=== PATIENT | male | born 1980 | race Two or more races ===

== ENCOUNTER 2019-09-20 10:51 | Emergency (ER) | payer SELFPAY ==
[~2019-09-20] VITALS: Ht 165.1 cm; Wt 75.0 kg
[2019-09-20] MEDS ORDERED: IV NORMAL SALINE 1000ML BAG 1,000 ML IV SCH (11:03)
[2019-09-20] MEDS ORDERED: ACETAMINOPHEN 500 MG TABLET PO ONE (11:15)
--- NOTE | 2019-09-20 11:39 | RAD ---
EXAM: Chest, single view. HISTORY: Cough and fever. COMPARISON: None. FINDINGS: A frontal view of the chest is obtained. There is partially consolidated bilateral mid and lower lung infiltrate superimposed on diffuse interstitial infiltrate. No pleural effusion or pneumothorax is seen. The heart is normal in size. IMPRESSION: Multifocal infiltrate including areas of partial consolidation. Follow-up to confirm resolution. Electronically signed by: Ina Marx MD (09/20/2019 11:35 AM) [id number]
[2019-09-20 11:43] LABS: CALCIUM 8.9 mg/dL (8.5-10.1); GFR 84.1; POTASSIUM 3.5 mmol/L (3.5-5.1)
[2019-09-20 11:44] LABS: BASO % 0 % (0-3); EOS % 0 % (0-3); HEMATOCRIT 41.5 % (39.0-53.0); HEMOGLOBIN 14.5 g/dL (13.0-17.5); LYMPH # 0.7 x10^3/uL (1.0-4.8); LYMPH % 11 % (24-48); MEAN CORPUSCULAR HEMOGLOBIN 30 pg (25-35); MEAN CORPUSCULAR HGB CONC 35 g/dL (31-37); MEAN CORPUSCULAR VOLUME 85 fL (79-100); MONO # 0.3 x10^3/uL (0.0-1.1); MONO % 4 % (0-9); NEUT % 86 % (31-73); PLATELET COUNT 218 x10^3/uL (140-400); RED BLOOD COUNT 4.86 x10^6/uL (4.30-5.70); RED CELL DISTRIBUTION WIDTH 14.8 % (11.5-14.5)
[2019-09-20 11:49] LABS: ALBUMIN 3.4 g/dL (3.4-5.0); ALBUMIN/GLOBULIN RATIO 0.7 (1.0-1.7); TOTAL BILIRUBIN 0.6 mg/dL (0.2-1.0); TOTAL PROTEIN 8.3 g/dL (6.4-8.2)
[2019-09-20 11:53] LABS: INFLUENZA A PATIENT NEGATIVE (NEGATIVE); INFLUENZA B PATIENT NEGATIVE (NEGATIVE); PROTHROMBIN TIME PATIENT 12.5 SEC (11.7-14.0)
[2019-09-20 12:00] VITALS: BP 113/67
[2019-09-20] MEDS ORDERED: ALBU2.5V8 IH (12:09)
[2019-09-20] MEDS ORDERED: [UNRECOGNIZED DRUG - OTHER] (12:09)
[2019-09-20] MEDS ORDERED: BENZ100C PO (12:09)
[2019-09-20] MEDS ORDERED: HYDR-3164 PO (12:09)
--- NOTE | 2019-09-20 12:09 | PHYS DOC ---
Past Medical History Past Medical History: No Pertinent History General Adult EDM: Chief Complaint: COUGH HPI: HPI: Patient is a 39 year old non-St [place]ian speaking male without history of medical problem who presents with complaining of fever and cough. Patient states he has had fever for the last 4 days associated with nonproductive cough and episode of shortness of breath during cough or activity. Patient denies neck pain, nasal congestion, sore throat, nausea and vomiting, diarrhea and constipation, urinary symptoms. Patient states he did not have recent travel or direct contact with COVID-19 patient but at his work may be had some contact with unknown customers at his work at [email or web address]. Review of Systems: Review of Systems: Constitutional: Reports fever Eyes: Denies change in visual acuity. [] HENT: Denies nasal congestion or sore throat. [] Respiratory: Reports cough and shortness of breath Cardiovascular: Denies chest pain or edema. [] GI: Denies abdominal pain, nausea, vomiting, bloody stools or diarrhea. [] : Denies dysuria. [] Musculoskeletal: Denies back pain or joint pain. [] Integument: Denies rash. [] Neurologic: Denies headache, focal weakness or sensory changes. [] Endocrine: Denies polyuria or polydipsia. [] Lymphatic: Denies swollen glands. [] Psychiatric: Denies depression or anxiety. [] Heart Score: Risk Factors: Risk Factors: DM, Current or recent (<one month) smoker, HTN, HLP, family history of CAD, obesity. Risk Scores: Score 0 - 3: 2.5% MACE over next 6 weeks - Discharge Home Score 4 - 6: 20.3% MACE over next 6 weeks - Admit for Clinical Observation Score 7 - 10: 72.7% MACE over next 6 weeks - Early Invasive Strategies Current Medications: Current Medications Medications (Trade) Dose Ordered Sig/Melissa Start Time Stop Time Status Last Admin Dose Admin Acetaminophen (Tylenol) 1,000 mg 1X ONCE 09/20/19 11:15 09/20/19 11:16 UNV Sodium Chloride 1,000 ml @ 1,000 mls/hr Q1H 09/20/19 11:03 09/20/19 12:02 UNV Physical Exam: PE: Constitutional: Well developed, well nourished, mild distress, non-toxic appearance, febrile. [] HENT: Normocephalic, atraumatic, bilateral external ears normal, oropharynx moist, no oral exudates, nose normal. [] Eyes: PERRLA, EOMI, conjunctiva normal, no discharge. [] Neck: Normal range of motion, no tenderness, supple, no stridor. [] Cardiovascular:Heart rate regular rhythm, no murmur [] Lungs & Thorax: Bilateral breath sounds clear to auscultation [] Abdomen: Bowel sounds normal, soft, no tenderness, no masses, no pulsatile masses. [] Skin: Warm, dry, no erythema, no rash. [] Back: No tenderness, no CVA tenderness. [] Extremities: No tenderness, no cyanosis, no clubbing, ROM intact, no edema. [] Neurologic: Alert and oriented X 3, normal motor function, normal sensory function, no focal deficits noted. [] Psychologic: Affect normal, judgement normal, mood normal. [] EKG: EKG: [] Radiology/Procedures: Radiology/Procedures: [facility] [address] [place], [place] [id number] IMAGING REPORT Signed PATIENT: JOI CHIANG ACCOUNT: [id number] : 1980 LOCATION: ER AGE: 39 SEX: M EXAM STATUS: REG ER ORD. PHYSICIAN: ADRIANA JEFFERY MD REASON: fever, cough PROCEDURE: PORTABLE CHEST 1V EXAM: Chest, single view. HISTORY: Cough and fever. COMPARISON: None. FINDINGS: A frontal view of the chest is obtained. There is partially consolidated bilateral mid and lower lung infiltrate superimposed on diffuse interstitial infiltrate. No pleural effusion or pneumothorax is seen. The heart is normal in size. IMPRESSION: Multifocal infiltrate including areas of partial consolidation. Follow-up to confirm resolution. Electronically signed by: Ina Marx MD (09/20/2019 11:35 AM) [id number] DICTATED and SIGNED BY: INA MARX MD DATE: 09/20/19 1135 Course & Med Decision Making: Course & Med Decision Making Pertinent Labs and Imaging studies reviewed. (See chart for details) Evaluation of patient in ER showed 39-year-old male patient with complaining of fever and cough and shortness of breath with activity. Patient had temperature of 100.1 at arrival to ER with O2 sat of 94% at room air that improved to 97% at room air without breathing treatment. Chest x-ray showed bilateral infiltrate. Patient is is suspicious for COVID19 infection and was advised to follow-up with outpatient COVID 19 test. Home care instruction for COVID 19 suspected was given. I've spoken with the patient and/or caregivers. I've explained the patient's condition, diagnosis and treatment plan based on information available to me at this time. I've answered the patient's and/or caregivers questions and addressed any concerns. The patient and/or caregivers have a good understanding the patient's diagnosis, condition and treatment plan as can be expected at this point. Vital signs have been stabilized. The patient's condition is stable for discharge from the emergency department. The patient will pursue further outpatient evaluation with her primary care provider or other designated consulting physician as outlined in the discharge instructions. Patient and/or caregivers are agreeable to this plan of care and follow-up instructions have been explained in detail. The patient and/or caregivers have received these instructions in written format and expressed understanding of these discharge instructions. The patient and her caregivers are aware that if any significant change in condition or worsening of symptoms should prompt him to immediately return to this of the closest emergency department. If an emergent department is not readily available I would encourage him to call 911. Daniella Disclaimer: Daniella Disclaimer: This electronic medical record was generated, in whole or in part, using a voice recognition dictation system. Departure Departure Impression: Primary Impression: Fever Qualified Codes: R50.9 - Fever, unspecified Additional Impressions: Suspected 2019 novel coronavirus infection Bilateral pulmonary infiltrates on CXR Disposition: HOME, SELF-CARE (At 1204) Condition: IMPROVED Referrals: NO PCP (PCP) Patient Instructions: Fever, Adult, Viral Infections Additional Instructions: You have a viral syndrome which may include symptoms like muscle aches, fevers, chills, runny nose, cough, sneezing, sore throat, nausea, vomiting, or diarrhea. One of the potential viruses that you may have is SARS-CoV-2, the virus that causes COVID-19, also known as the Coronavirus. You are just as likely to have a different viral infection such as the common cold, flu, etc. Most patients with the Coronavirus have mild symptoms and recover on their own. Resting, staying hydrated, and sleep based on known cases can be helpful. As of todays visit, you are well enough to go home and treat your symptoms with oral fluids and over the counter medications. Coronavirus testing is not performed on most people with mild symptoms who are being discharged from the emergency department. If Coronavirus testing was performed today the results will not be available for possibly up to 3-4 days. If your result is positive you will be contacted. Please follow the following precautions at home: 1) Stay home except to get medical care. 2) As advised by the CDC, we recommend that you stay in your home and minimize contact with other people. We do not want you to spread the infection. 3) Those who are older or have significant medical issues may have more severe symptoms from this infection. We recommend self-isolation FOR AT LEAST 7 DAYS after your 1st day of symptoms. AFTER you feel better please wait AT LEAST ANOTHER WEEK before returning to regular activities and being around other people. 4) IF you become sicker and have difficulty breathing, chest pain, are unable to eat/drink, severe vomiting, diarrhea, or weakness you may need to return to the Emergency Department. 5) You should restrict activities outside of your home, except for getting medical care. DO NOT go to work, school, or public areas. Avoid using public transportation, ride sharing, or taxis. 6) Separate yourself from other people in your home. You should use a separate bathroom if possible. 7) Avoid sharing personal household items such as dishes, cups, eating utensils, towels, etc. 8) Clean all high touch surfaces every day (door knobs, counter tops, etc). Use a household cleaning spray or wipe per label instructions. 9) Clean your hands often. Wash your hands with soap and water for at least 20 seconds. 10) Cover your mouth and nose when you cough or sneeze. 11) Throw used tissues in the trash and immediately wash your hands. For additional resources please visit the CDC website or the [facility] ([phone]), you may also call 311 for further information. Follow-up with outpatient order for COVID-19 test Thank you for visiting . We appreciate you trusting us with your care. If any additional problems come up don't hesitate to return to visit us. Please follow up with your primary care provider so they can plan additional care if needed and know about the problem that you had. If symptoms worsen come back to the Emergency Department. Any concerning symptoms that start such as chest pain, shortness of air, weakness or numbness on one side of the body, running high fevers or any other concerning symptoms return to the ER. Scripts [COVID-19 test] No Conflict Check Prov: ADRIANA JEFFERY MD 09/20/19 Hydrocodone/Apap 5-325 (NORCO 5-325 TABLET) 1 Each Tablet 1 TAB PO PRN Q6HRS PRN for PAIN, #15 TAB 0 Refills Prov: ADRIANA JEFFERY MD 09/20/19 Benzonatate (TESSALON PERLE) 100 Mg Capsule 1 CAP PO TID for cough, #21 CAP Prov: ADRIANA JEFFERY MD 09/20/19 Albuterol Sulfate (PROAIR HFA INHALER) 8.5 Gm Hfa.aer.ad 2 PUFF IH PRN Q4-6HRS PRN for wheezing for 21 Days, #1 INHALER 0 Refills Prov: ADRIANA JEFFERY MD 09/20/19 Critical Care Time Critical care time was 40 minutes exclusive of procedures. COVID-19 Assessment: COVID-19 Patient Risks: Age 65 or older: No Sign of co-morbidity: No Exp to person + for COVID: No Exp to PUI: No Travel from affected area: No Lower respiratory symptoms: Yes Fever: Yes Other: No PPE Use: Full PPE with N95 mask or PAPR: Yes ADRIANA JEFFERY MD Sep 20, 2019 12:09
[2019-09-20 12:21] LABS: % ATYL 2 % (0-0); % BANDS 18 % (0-9); % LYMPHS 8 % (24-48); % MONOS 2 % (0-10); % SEGS 70 % (35-66)
[2019-09-20 12:23] LABS: PLT ESTIMATE ADEQUATE (ADEQUATE)
== END 2019-09-20 12:52 | disposition home or self-care (01) ==
LOC: ER 10:51
DX: R50.9 Fever, unspecified (principal); R05 Cough; R91.8 Other nonspecific abnormal finding of lung field; R06.02 Shortness of breath; Z20.818 Contact with and (suspected) exposure to other bacterial communicable diseases
CPT/HCPCS: 36415; 71045; 80053; 83605; 85007; 85025; 85610; 87804; 99284; J7030